=== PATIENT | female | born 2000 | race Native Hawaiian/Other Pacific Islander ===

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

== ENCOUNTER 2023-07-31 12:42 | Emergency (ER) | payer MEDICAID, SELFPAY ==
[2023-07-31] VITALS (25 sets, daily range): BP systolic 117–128; BP diastolic 77–89; PULSE 80–96; RESP 18; TEMP 36.8; O2SAT 93–97; BMI 23.8
--- NOTE | 2023-07-31 13:35 | CT_ITS ---
WS: [id number] CT HEAD NONCONTRAST HISTORY: headache TECHNIQUE: Contiguous axial imaging performed through the brain in 2.5 mm imaging. Bone and soft tiss ue windows. Sagittal and coronal reformats reviewed. All CT scans at [facility] use at least one of these dose optimization techniques: automated exposure control; mA and/or kV adjustment per pa tient size (includes targeted exams where dose is matched to clinical indication); or iterative recon struction. DLP: 1003.58 mGy.cm COMPARISON: None available. No acute intracranial hemorrhage, midline shift or mass effect. No atrophy or prior infarcts or herniation. Ventricles: Normal size with no hydrocephalus. Paranasal sinuses: As visualized are clear. Mastoid air cells: Well pneumatized. Calvarium and scalp: Skull is intact with no soft tissue edema or swelling. IMPRESSION: Negative head CT.
[2023-07-31 14:07] LABS: Basophils % 0.4 %; Eosinophils # 0.1 10^3/uL (0.0-0.8); Eosinophils % 2.4 %; Hematocrit 40.4 % (36-47); Lymphocytes # 1.8 10^3/uL (1.5-6.5); Lymphocytes % 33.8 %; Mean Corpuscular HGB Conc 34.4 g/dL (30-55); Mean Corpuscular Hemoglobin 32.4 pg (27-33); Mean Corpuscular Volume 94.2 fl (85-98); Mean Platelet Volume 9.6 fL (7.4-10.4); Monocytes # 0.6 10^3/uL (0.2-0.9); Monocytes % 10.9 %; Neutrophils # 2.78 10^3/uL (1.8-8.0); Neutrophils % 52.3 %; Nucleated Red Blood Cells % 0 %; Platelet Count 189 10^3/cmm (157-399); Red Blood Count 4.29 10^6/uL (3.85-5.65); Red Cell Distribution Width 11.3 % (12.1-15.1); White Blood Count 5.32 10^3/uL (4.5-13.0)
[2023-07-31] MEDS: sodium chloride 0.9% 1,000 ML 999 ML IV (14:23)
[2023-07-31] MEDS: metoclopramide 5 mg/mL SDV 2 mL 10 MG IVP (14:24)
[2023-07-31] MEDS: ketorolac 30 mg/mL INJ IVP (14:28)
[2023-07-31 14:34] LABS: Alanine Aminotransferase 10 U/L (0-33); Albumin Level 4.7 g/dL (3.5-5.2); Alkaline Phosphatase 45 U/L (35-105); Anion Gap 14.2 (5-19); Aspartate Amino Transferase 14 U/L (0-32); Blood Urea Nitrogen 7 mg/dL (6-20); Calcium 9.4 mg/dL (8.5-10.5); Carbon Dioxide 23 mmol/L (22-29); Chloride 106 mmol/L (98-107); Creatinine Clr Calc Pharmacy 126.6661; Globulin 2.5 g/dL (1.3-4.6); Glomerular Filtration Rate 127.5 mL/min (90-130); Glucose 83 mg/dL (65-115); Osmolality Calculated 285 mOsm/kg (285-295); Potassium 4.2 mmol/L (3.5-5.1); Sodium 139 mmol/L (136-145); Total Protein 7.2 g/dL (6.6-8.7)
--- NOTE | 2023-07-31 14:48 | ED_ITS ---
HPI - Headache General: Chief Complaint: Headache Stated Complaint: Headache Time Seen by Provider: 07/31/23 13:18 Source: patient Mode of arrival: ambulatory Limitations: no limitations History of Present Illness: This 22-year-old female presents to the ER for headache that has been off-and-on for 2 months. Headache usually starts around lunch or dinner time, lasts for a variable amount of time and resolves spontaneously. Headache starts on top of the head, spreads to both sides and sometimes to the eyeballs. There is no associated fever or vomiting though patient occasionally feels nauseated. She has been seen by her primary care physician who gave her anti-inflammatories. When she called back to the office today, she was advised to come to the ER for evaluation. She appears clinically stable. Associated symptoms: Reports nausea; Deny chest pain or lightheadedness Review of Systems Const: Denies: chills, body aches or change in appetite Eyes: Denies: change in vision or eye discharge ENMT: Denies: throat pain, dental pain or nasal discharge Card: Denies: chest pain or lightheadedness GI: Reports: nausea : Denies: dysuria Musc: Denies: neck pain or back pain Neuro: Reports: headache(s); Denies: weakness in extremities Psych: Denies: depression Sean/Lymph: Denies: easy bruising All/Imm: Denies: urticaria, tongue swelling or facial swelling PFSH ED PFSH: Medical History (Updated 07/31/23 @ 14:54 by Kirk Crouch MD) Alcohol abuse Alcohol use disorder Borderline intellectual functioning Cannabis use disorder Methamphetamine use disorder, severe No pertinent past medical history neghx: htn,dm,thyroid,dvt/pe PCP: None Psychiatric care Tobacco use disorder Surgical History No pertinent past surgical history Family History Mother Breast cancer mets to brain Hypertension Grandfather Diabetes Paternal Hypertension Paternal Father Stroke Grandmother Thyroid disease Paternal Denies family history of Colon cancer Ovarian cancer Heart disease Hypercholesteremia Uterine cancer Social History (Updated 01/07/21 @ 11:16 by Leandra Mercer RN) Smoking and tobacco/nicotine status: current every day tobacco/nicotine user cigarettes [ Other cigarette details: less than half a pack ] Alcohol intake: never Substance/Drug Use: current Substance/Drug use frequency: few times a month Other substance/drug use details: states she stopped when finding out she was Physical Exam Const: COMMON NORMALS: no acute distress, patient oriented x3, no limitations and alert HENMT: COMMON NORMALS: normocephalic HEAD & SCALP: normocephalic Eye: COMMON NORMALS: EOMs intact bilaterally Neck/C-Spine: COMMON NORMALS: full ROM and supple Chest: COMMONS NORMALS: normal inspection of the chest Resp: COMMON NORMALS: normal respiratory effort, No retractions, No use of accessory muscles and clear to auscultation bilaterally AUSCULTATION: clear t o auscultation bilaterally Cardio: COMMON NORMALS: regular rate, regular rhythm and No murmurs present (Cardio) RATE: regular rate RHYTHM: regular rhythm GI: COMMON NORMALS: Normal to inspection, nondistended, normoactive bowel sounds present and non-tender : COMMON NORMALS: Yes no CVA tenderness BLADDER/KIDNEY EXAM: Yes no CVA tenderness Back/Pelvis: COMMON NORMALS: no CVA tenderness and no thoracic nor lumbar tenderness Extremity: GENERAL: Yes normal exam except as noted Neuro: COMMON NORMALS: patient oriented x3 and no focal motor deficits SENSORIUM/ORIENTATION: Yes alert Psych: COMMON NORMALS: mental status grossly normal and cooperative Course Vital Signs: Vital signs: Vital Signs Temperature 98.3 F 07/31/23 12:44 Pulse Rate 80 07/31/23 15:18 Respiratory Rate 18 07/31/23 12:44 Blood Pressure 117/77 07/31/23 15:18 Pulse Oximetry 96 07/31/23 15:18 Oxygen Delivery Me thod Room Air 07/31/23 12:44 MDM - Headache Medical Decision Making Medical decision making: Patient's headache is intermittent and last for variable amount of time. She has no background history of migraine headaches. She was advised by her primary care physician to come to the ER for possible CT brain. CT brain is negative for any acute intracranial process and completed blood tests are unremarkable. After receiving ketorolac, patient felt considerably better. She refused Imitrex because its a subccuatneous injection. She was discharged home with ketorolac and Imitrex and advised to take it as directed. She will follow-up with her primary care physician. Return instructions provided. Lab Data 07/31/23 13:47 07/31/23 13:47 Laboratory Results WBC 5.32 10^3/uL (4.5-13.0) 07/31/23 13:47 RBC 4.29 10^6/uL (3.85-5.65) 07/31/23 13:47 Hgb 13.90 g/dL (12.4-14.8) 07/31/23 13:47 Hct 40.4 % (36-47) 07/31/23 13:47 MCV 94.2 fl (85-98) 07/31/23 13:47 MCH 32.4 pg (27-33) 07/31/23 13:47 MCHC 34.4 g/dL (30-55) 07/31/23 13:47 RDW 11.3 % (12.1-15.1) L 07/31/23 13:47 Plt Count 189 10^3/cmm (157-399) 07/31/23 13:47 MPV 9.6 fL (7.4-10.4) 07/31/23 13:47 Neut % (Auto) 52.3 % 07/31/23 13:47 Lymph % (Auto) 33.8 % 07/31/23 13:47 [place] % (Auto) 10.9 % 07/31/23 13:47 Eos % (Auto) 2.4 % 07/31/23 13:47 Baso % (Auto) 0.4 % 07/31/23 13:47 Neut # (Auto) 2.78 10^3/uL (1.8-8.0) 07/31/23 13:47 Lymph # (Auto) 1.8 10^3/uL (1.5-6.5) 07/31/23 13:47 [place] # (Auto) 0.6 10^3/uL (0.2-0.9) 07/31/23 13:47 Eos # (Auto) 0.1 10^3/uL (0.0-0.8) 07/31/23 13:47 Baso # (Auto) 0.0 10^3/uL (0.0-0.1) 07/31/23 13:47 Nucleated RBC % (auto) 0 % 07/31/23 13:47 Nucleated RBCs # 0.0 /100WBC 07/31/23 13:47 Sodium 139 mmol/L (136-145) 07/31/23 13:47 Potassium 4.2 mmol/L (3.5-5.1) 07/31/23 13:47 Chloride 106 mmol/L (98-107) 07/31/23 13:47 Carbon Dioxide 23 mmol/L (22-29) 07/31/23 13:47 Anion Gap 14.2 (5-19) 07/31/23 13:47 BUN 7 mg/dL (6-20) 07/31/23 13:47 Creatinine 0.6 mg/dL (0.5-0.9) 07/31/23 13:47 GFR Calculation 127.5 mL/min (90-130) 07/31/23 13:47 Glucose 83 mg/dL (65-115) 07/31/23 13:47 Calculated Osmolality 285 mOsm/kg (285-295) 07/31/23 13:47 Calcium 9.4 mg/dL (8.5-10.5) 07/31/23 13:47 Total Bilirubin 1.0 mg/dL (0.15-1.2) 07/31/23 13:47 AST 14 U/L (0-32) 07/31/23 13:47 ALT 10 U/L (0-33) 07/31/23 13:47 Alkaline Phosphatase 45 U/L (35-105) 07/31/23 13:47 Total Protein 7.2 g/dL (6.6-8.7) 07/31/23 13:47 Albumin 4.7 g/dL (3.5-5.2) 07/31/23 13:47 Globulin 2.5 g/dL (1.3-4.6) 07/31/23 13:47 All radiology interpretation(s) finalized by discharge Discharge Plan Discharge Patient Disposition: Home Clinical Impression: Intermittent headache Condition: Stable Prescriptions: New Imitrex 50 mg tablet See Rx Instructions PO .COMPLEX Qty: 20 0RF Rx Instructions: take 1 tab at onset of headache; if no relief may repeat 1 tab after at least 2 hrs; max = 4 tabs/24 hr ketorolac 10 mg tablet 10 mg PO Q6H PRN (Reason: pain) 1 Days Qty: 20 0RF No Action albuterol sulfate 90 mcg/actuation HFA aerosol inhaler 2 puff INHALATION Q4H PRN (Reason: Shortness Of Breath) Discharge Orders: Discharge ED (Routine); Ordered 07/31/23 Ordered By: Kirk Crouch Referrals: Melissa Nichols MD [Primary Care Provider] - Discharge Diet: Usual diet Discharge Activity: Resume usual activity Patient Instructions: Opioid Safety, Pain Management Activity Restrictions/Additional Instructions: Rest. Maintain adequate fluid intake. Take ketorolac and Imitrex as prescribed. Follow-up with your primary care physician in 3 to 5 days for reevaluation. Return with new or worsening symptoms. Coding Level of Care Code ED Primary Care Coordinator for Sirena Finn
== END 2023-07-31 15:21 | disposition home or self-care (01) ==
PROVIDERS: Emergency Provider Family Medicine; PCP Family Medicine
DX: G44.89 Other headache syndrome (principal); F17.210 Nicotine dependence, cigarettes, uncomplicated
CPT/HCPCS: 70450; 80053; 85025; 96374; 96375; 99285; J1885; J2765; J7030

== ENCOUNTER 2025-02-10 03:05 | Emergency (ER) | payer MEDICAID, SELFPAY ==
[2025-02-10 03:11] VITALS: BP 139/105; PULSE 102; RESP 16; TEMP 37.1; O2SAT 99; BMI 20.1
[2025-02-10] MEDS: diphenhydrAMINE 50 mg/mL SDV 1mL 25 MG IVP (03:21)
[2025-02-10] MEDS: methylPREDNISolone sod succ 125 mg/2 mL INJ IVP (03:21)
[2025-02-10] MEDS: famotidine 20 mg/2 mL INJ IVP (03:21)
[2025-02-10 03:45] VITALS: BP 141/89; PULSE 126; O2SAT 98
[2025-02-10 04:16] VITALS: BP 121/72; PULSE 101; O2SAT 97
--- NOTE | 2025-02-10 04:20 | ED_ITS ---
HPI - Allergic Reaction General: Chief complaint: Allergic Reaction Stated complaint: Lip and touge swollen hard to Breathe Time Seen by Provider: 02/10/25 03:11 History of Present Illness: HPI narrative: Patient presents emerged part with complaints of swelling of her lips and tongue and feeling like she is having difficulty breathing after eating shrimp tonight. She does not know if she is allergic to shrimp or not. Related Data Home Medications ?Medication ?Instructions ?Recorded ?Confirmed albuterol sulfate 90 mcg/actuation 2 puff inhalation Q 4H PRN 06/01/20 08/11/22 aerosol inhaler Shortness Of Breath Previous Rx's ?Medication ?Instructions ?Recorded sumatriptan succinate 50 mg tablet See Rx Instructions PO .COMPLEX 07/31/23 (Imitrex) #20 tabs prednisone 20 mg tablet 20 mg PO BID 5 days #10 tabs 02/10/25 Allergies Allergy/AdvReac Type Severity Reaction Status Date / Time Penicillins Allergy Intermediate ALGY-Hives Verified 07/31/23 12:48 kiwi Allergy ALGY-Rash Verified 02/10/25 03:18 PFSH ED PFSH: Medical History (Updated 02/10/25 @ 04:[address] MD) Borderline intellectual functioning Alcohol use disorder Methamphetamine use disorder, severe Cannabis use disorder Tobacco use disorder Alcohol abuse No pertinent past medical history neghx: htn,dm,thyroid,dvt/pe PCP: None Surgical History No pertinent past surgical history Family History Mother Breast cancer mets to brain Hypertension Grandfather Diabetes Paternal Hypertension Paternal Father Stroke Grandmother Thyroid disease Paternal Denies family history of Colon cancer Ovarian cancer Heart disease Hypercholesteremia Uterine cancer Social History (Updated 01/07/21 @ 11:16 by Leandra Mercer RN) Smoking and tobacco/nicotine status: current every day tobacco/nicotine user c igarettes [ Other cigarette details: less than half a pack ] Alcohol intake: never Substance/Drug Use: current Substance/Drug use frequency: few times a month Other substance/drug use details: states she stopped when finding out she was Physical Exam Const: COMMON NORMALS: no acute distress, average body habitus, patient oriented x3, no limitations, healthy appearing, alert and well nourished HENMT: COMMON NORMALS: normocephalic, atraumatic, hearing grossly normal bilaterally, external ears normal, EAC's normal, TM's normal bilaterally, Normal external nose present, Normal nasal mucous membranes and turbinates present, moist oral mucous membranes, oropharynx normal, dentition normal and gingiva normal HEAD & SCALP: normocephalic and atraumatic NOSE: Normal external nose present and Normal nasal mucous membranes and turbinates present EXTERNAL EAR: Yes external ears normal EXTERNAL AUDITORY CANAL: EAC's normal TYMPANIC MEMBRANE: TM's normal bilaterally MOUTH: lip normal and tongue normal THROAT: posterior oropharynx normal Neck/C-Spine: COMMON NORMALS: no JVD Resp: COMMON NORMALS: normal respiratory effort, No retractions, No use of accessory muscles, clear to auscultation bilaterally and percussion normal AUSCULTATION: clear to auscultation bilaterally PERCUSSION: percussion normal Cardio: COMMON NORMALS: no JVD, regular rate, regular rhythm, S1 normal heart sound present, S2 normal heart sound present, No gallops present (Cardio), No clicks present (Cardio), No murmurs present (Cardio), No rub (Cardio) and Peripheral pulses 2+ throughout RATE: regular rate RHYTHM: regular rhythm HEART SOUNDS: S1 normal heart sound present and S2 normal heart sound present PERIPHERAL PULSES: Peripheral pulses 2+ throughout Neuro: COMMON NORMALS: patient oriented x3 SENSORIUM/ORIENTATION: Yes alert Course Vital Signs: Vital signs: Vital Signs Temperature 98.8 F 02/10/25 03:11 Pulse Rate 101 H 02/10/25 04:16 Respiratory Rate 16 02/10/25 03:11 Blood Pressure 121/72 02/10/25 04:16 Pulse Oximetry 97 02/10/25 04:16 Oxygen Delivery Me thod Room Air 02/10/25 03:11 MDM - Allergic Reaction Medical Decision Making Patient presents emerged part with complaint of swelling of the lip and tongue and throat and feeling of shortness of breath after eating shrimp tonight. Physical exam I cannot really appreciate any swelling and there is no urticaria however based upon patient's symptoms went ahead and gave patient steroids and Pepcid and Benadryl. She was observed for an hour and she states symptoms resolved. Again no objective findings noted on physical exam. No evidence of anaphylaxis. Patient should be safe to be discharged home now and will discharge home with recommendations to continue Benadryl and will give a few days of steroids and patient to avoid shrimp. No radiology studies performed this visit Discharge Plan Discharge Patient Disposition: Home Clinical Impression: Allergic reaction Condition: Stable Prescriptions: New prednisone 20 mg tablet 20 mg PO BID 5 Days Qty: 10 0RF No Action albuterol sulfate 90 mcg/actuation HFA aerosol inhaler 2 puff INHALATION Q4H PRN (Reason: Shortness Of Breath) Imitrex 50 mg tablet See Rx Instructions PO .COMPLEX Qty: 20 0RF Rx Instructions: take 1 tab at onset of headache; if no relief may repeat 1 tab after at least 2 hrs; max = 4 tabs/24 hr Discharge Orders: Discharge ED (Routine); Ordered 02/10/25 Ordered By: Aguilar Lane Referrals: Melissa Nichols MD [Primary Care Provider, Family Practice] Patient Instructions: Opioid Safety, Pain Management Print Language: Croatian Coding Level of Care Code ED Electronic Specialist for Sirena Finn
[2025-02-10 04:35] VITALS: BP 121/72; PULSE 108; O2SAT 99
== END 2025-02-10 04:30 | disposition home or self-care (01) ==
PROVIDERS: Emergency Provider Emergency Medicine; PCP Family Medicine
DX: T78.40XA Allergy, unspecified, initial encounter (principal); X58.XXXA Exposure to other specified factors, initial encounter; F17.210 Nicotine dependence, cigarettes, uncomplicated
CPT/HCPCS: 96374; 96375; 99284; J1200; J2919; J3490